=== PATIENT | male | born 1990 | race Caucasian/White ===

== ENCOUNTER 2020-03-26 01:40 | Emergency (ER) | payer SELFPAY ==
[~2020-03-26] VITALS: Ht 175.3 cm; Wt 81.6 kg
[2020-03-26 01:42] VITALS: BP 139/76
--- NOTE | 2020-03-26 01:51 | NUR ---
PATIENT IS SEEN AND EVALUATED BY DR. CHI.
--- NOTE | 2020-03-26 01:57 | NUR ---
Patient discharged to home in stable condition. Written and verbal after care instructions given. Patient verbalizes understanding of instruction.
== END 2020-03-26 01:59 | disposition home or self-care (01) ==
LOC: ER 01:40
DX: U07.1 COVID-19 (principal); F10.129 Alcohol abuse with intoxication, unspecified; I10 Essential (primary) hypertension; R53.1 Weakness; Y90.9 Presence of alcohol in blood, level not specified